=== PATIENT | male | born 1975 | race African-American/Black ===

== ENCOUNTER 2020-03-24 20:09 | Emergency (ER) | payer OTHER ==
[~2020-03-24] VITALS: Ht 190.5 cm; Wt 100.0 kg
[2020-03-24 20:12] VITALS: BP 140/97
[2020-03-24] MEDS ORDERED: ACETAMINOPHEN 325MG TABLET PO ONE (21:00)
[2020-03-24] MEDS ORDERED: TETANUS, DIPHTHERIA, PERTUSSIS VAC/PF 0.5ML (>7YR OLD) IM ONE (21:30)
[2020-03-24] MEDS ORDERED: BACITRACIN ZINC OINT UDPKT TOP ONE (21:30)
== END 2020-03-24 21:58 | disposition home or self-care (01) ==
LOC: ER 20:09
DX: S90.822A Blister (nonthermal), left foot, initial encounter (principal); S90.821A Blister (nonthermal), right foot, initial encounter; X58.XXXA Exposure to other specified factors, initial encounter; Y93.89 Activity, other specified; Y92.89 Other specified places as the place of occurrence of the external cause; Y99.8 Other external cause status
CPT/HCPCS: 99283